=== PATIENT | female | born 1970 | race Caucasian/White ===

== ENCOUNTER 2022-06-26 20:57 | Emergency (ER) | payer MEDICAID, OTHER ==
[~2022-06-26] VITALS: Ht 154.9 cm; Wt 70.3 kg
[2022-06-26] MEDS ORDERED: LORAZEPAM 2 MG/1 ML VIAL IV ONE (21:30)
[2022-06-26 21:42] LABS: HEMATOCRIT 38.7 % (31.2-41.9); MEAN CORPUSCULAR HEMOGLOBIN 32.7 uug (24.7-32.8); MEAN CORPUSCULAR VOLUME 99.5 fL (75.5-95.3); PLATELET COUNT (AUTO) 414 K/uL (179-408)
[2022-06-26 21:57] LABS: ALANINE AMINOTRANSFERASE 23 U/L (14-59); ALKALINE PHOSPHATASE 83 U/L (50-136); ASPARTATE AMINOTRANSFERASE 26 U/L (15-37); BILIRUBIN,DIRECT 0.2 mg/dL (0.0-0.2); BILIRUBIN,TOTAL 0.8 mg/dL (0.2-1.0); CARBON DIOXIDE 23 mmol/L (21-32); CHLORIDE 103 mmol/L (98-107); CREATININE 0.5 mg/dL (0.6-1.3); GLUCOSE 98 mg/dL (74-106); POTASSIUM 3.9 mmol/L (3.5-5.1); TOTAL PROTEIN, SERUM 7.6 g/dL (6.4-8.2); UREA NITROGEN, BLOOD 12 mg/dL (7-18)
[2022-06-26 22:00] LABS: *BILIRUBIN,URIN NEGATIVE (NEGATIVE); *CLARITY,URINE CLEAR (CLEAR); *COLOR,URINE YELLOW (YELLOW); PH,URINE 5.5 (5.0-8.0); UGLUCOSE NEGATIVE (NEGATIVE)
[2022-06-26 22:00] LABS: ACETAMINOPHEN < 2.0 ug/mL (10-30)
--- NOTE | 2022-06-26 22:00 | NUR ---
Patient ambulated to the restroom with steady gait, NAD noted
[2022-06-26 22:01] LABS: *BLOOD, URINE TRACE (NEGATIVE); *KETONES,URINE 2+ (NEGATIVE); *UROBILINOGEN,URINE 0.2 E.U./dl (NORMAL); LEUKOCYTE ESTERASE ,URINE NEGATIVE (NEGATIVE); NITRITE, URINE NEGATIVE (NEGATIVE)
[2022-06-26 22:04] LABS: THYROID STIMULATING HORMONE 1.873 mIU/mL (0.358-3.740)
[2022-06-26 22:04] LABS: *URINE HCG, QUAL NEGATIVE (NEGATIVE); BACTERIA,URINE NONE SEEN /HPF (NONE SEEN); SQUAMOUS EPITHELIAL CELL,UR FEW /HPF (NONE SEEN); WBC,URINE NONE SEEN /HPF (0-3)
[2022-06-26 22:06] LABS: *AMPHETAMINE, URINE NEGATIVE (NEGATIVE); *CANNABINOID, URINE NEGATIVE (NEGATIVE); *COCCAINE, URINE NEGATIVE (NEGATIVE); *PHENCYCLIDINE SCREEN,URINE NEGATIVE (NEGATIVE)
[2022-06-26 22:13] LABS: ETHANOL < 3 MG/DL (0-0)
[2022-06-26] MEDS ORDERED: LORAZEPAM 2 MG/1 ML VIAL ONE (22:28)
--- NOTE | 2022-06-27 00:09 | NUR ---
construction millwright Josh at bedside, psych eval in progress
[2022-06-27] MEDS ORDERED: OLANZAPINE 5 MG TABLET ONE (00:33)
[2022-06-27] MEDS ORDERED: OLANZAPINE 5 MG TABLET PO ONE (00:45)
--- NOTE | 2022-06-27 00:45 | NUR ---
Per Favor Maker Josh, patient does not meet criteria for 5150 hold at this time. Patient however has been accepted to go to [facility] on a voluntary basis.
--- NOTE | 2022-06-27 05:00 | NUR ---
Patient responding to internal stimuli, talking to self, laughing inappropriately and "sees horses and lights"
--- NOTE | 2022-06-27 07:51 | NUR ---
Pt wanted to leaving ER AMA. Pt decided to stay and transfer to [facility] after talking to sister and medical staff. Removed Pt's IV site. Safety measures in place. Will continue to monitor.
--- NOTE | 2022-06-27 08:39 | NUR ---
SW consult for a 51 year old female in the ER. Patient was seen by crisis shipping helper, Josh Holland LCSW and was not placed on a 5150 because she did not meet criteria. Patient is alert and oriented X2 and presents with anxious mood and congruent affect. Patient states her primary contact is her sister, Xochitl Brambila ([phone]) and she lives close by. Patient states she lives with her mother, Brittany Campos, at [address] [place] [address] [id number]. 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 Patient denies a history of substance abuse and the toxicology is negative. Patient states she has a history of anxiety and panic attacks. Patient states she does not have a therapist or psychiatrist and is not taking any medication. Josh Holland LCSW provided the patient and family with mental health resources. Patient denies suicidal or homicidal ideation. Patient is open to going to [facility] and MARIE contacted Demarcus from [facility] ([phone]) and faxed him the patient's facesheet. MARIE informed nurse, Megan and Dr. Maza. MARIE will continue to follow up.
--- NOTE | 2022-06-27 10:00 | NUR ---
S[poke to [facility] hospital bed manangment and pt's info faxed per request.
--- NOTE | 2022-06-27 11:32 | NUR ---
Pt in no S&S of distress. Safety measures in place. Will continue to monitor.
--- NOTE | 2022-06-27 13:51 | NUR ---
Michael SALAZAR was in [facility] w/ [facility] and pt was accepted to be transfered. Call placed for transfer by MARIE to [facility] for [facility] [place], ETA 50-75 min.
--- NOTE | 2022-06-27 14:01 | NUR ---
Gave report to Adan, [employer] Operator of [facility] Aleksey Stylesmiguel ángel @ [phone]. Safety measures in place. Will continue to monitor.
--- NOTE | 2022-06-27 14:33 | NUR ---
Performed Pt handoff with [id number]. Gave report to Silviano (EMT) . Pt in no S&S of distress at time of transfer. Vital signs stable at time of transferAll patient belongings taken with Pt.
== END 2022-06-27 14:48 ==
LOC: ER 21:10
DX: F41.9 Anxiety disorder, unspecified (principal); F29 Unspecified psychosis not due to a substance or known physiological condition; Z88.0 Allergy status to penicillin; Z20.822 Contact with and (suspected) exposure to COVID-19
CPT/HCPCS: 80076; 80048; 81001; 84703; 84443; 85025; 87426; 36415; 93005; 71045; 70450; 99285; 96374; 80299; 80320; 80307; J2060; A4663; G0480